=== PATIENT | female | born 1965 | race Caucasian/White ===

== ENCOUNTER 2016-11-15 05:10 | Emergency (ER) | payer OTHER ==
[2016-11-15 05:55] LABS: BASOPHILS % 0.5 (0.0-1.5); EOSINOPHILS % 0.6 % (0.0-6.8); LYMPHOCYTES # 0.9 # k/uL (0.6-4.0); MEAN CORPUSCULAR HEMOGLOBIN 34.3 pg (28.0-34.0); MONOCYTES # 0.4 # k/uL (0.0-0.9); MONOCYTES % 8.6 % (0.0-11.0); NEUTROPHILS # 3.2 # k/uL (1.4-7.7)
--- NOTE | 2016-11-15 06:11 | Diagnostic Imaging Report ---
[facility] [id number] [facility].[address] [address] ~ ~ ~ ~ Report Submission Date: Nov 15, 2016 6:04:15 AM CARE CONNECTOR Patient ~ Study Name: TAMANNA MCCLELLAN ~ Date: Nov 15, 2016 5:47:37 AM CARE CONNECTOR ~ Modality Type: CR Gender: F ~ Description: CHEST : 61 ~ Institution: [facility] Physician: MARCO A WILLIS ~ ~ ~ ~ Chest 2 views History: Cough Findings: A septal occlusion device and moderate hyperinflation are observed without pneumonia or pleural effusion. Heart size is normal. A calcified right lung granuloma is present. Cervical fusion hardware noted. Impression: Septal occlusion device and hyperinflation. ~ Electronically signed on Nov 15, 2016 6:04:15 AM CARE CONNECTOR by: Tomas ADAMS
[2016-11-15 06:26] LABS: eGFR (African) > 60; eGFR (Non-African) > 60
--- NOTE | 2016-11-15 06:56 | ED Physician Documentation ---
Upper Respiratory Symptoms - HPI Stated Complaint: fever, body aches, congestion Chief Complaint: Cough/ Upper Respiratory Onset: days ago Associated Symptoms: fever, chills, runny nose, sinus pain, sinus drainage, sore throat, productive cough. denies: chest pain, bloody cough, shortness of breath Further Comments: yes (51 year old female patient presents with complaints of cough, dyspnea, congestion and headache for "a couple of weeks." Reports temp 104 last night.) - ROS CONST/EYES: denies: weakness, eye redness, eye itching, other CVS/RESP: none LYMPH: denies: leg swelling, rash, swollen glands, ankle swelling, other GI/: none NEURO/PSYCH: denies: fainting, dizziness, confusion, anxiety, depression, other MS/SKIN: denies: joint pain, muscle aches, rash, other - PAST HX Lung Disease: other (VSD) Surgeries/Procedures: other (Septal occlusion device placement. ) Immunizations: UTD Allergies/Adverse Reactions: Allergies Allergy/AdvReac Type Severity Reaction Status Date / Time levofloxacin [From Levaquin] AdvReac Unknown Hives Verified 11/15/16 05:25 tramadol HCl [From Ultram] AdvReac Unknown Hives Verified 11/15/16 05:25 Home Medications: Ambulatory Orders Medication Instructions Recorded Cefdinir [Omnicef] 300 mg PO BID #10 capsule 11/15/16 Cyanocobalamin [Vitamin B-12] 5,000 mcg PO QDAY 11/15/16 Methylprednisolone [Medrol] 4 mg PO DAILY #1 tab.ds.pk 11/15/16 - SOCIAL HX Smoking History: cigarettes - FAMILY HX Family History: denies: none - VITAL SIGNS Vital Signs: Vital Signs Temp Pulse Resp BP Pulse Ox 100.4 F H 103 H 20 114/84 95 11/15/16 07:27 11/15/16 07:27 11/15/16 07:27 11/15/16 07:27 11/15/16 07:27 - REVIEWED ASSESSMENTS Nursing Assessment Reviewed: Yes Vitals Reviewed: Yes Progress - EKG/XRAY/CT XRAY: chest (negative) ED Results Lab/Radiology - Lab Results Lab Results: Lab Results 11/15/16 11/15/16 11/15/16 05:45 05:45 05:35 WBC 4.60 K/ul K/ul (4.00-12.00) RBC 4.78 M/ul M/ul (3.90-5.20) Hgb 16.4 g/dL H g/dL (12.0-16.0) Hct 47.1 % H % (34.5-46.5) MCV 98.5 fl fl (80.0-100.0) MCH 34.3 pg H pg (28.0-34.0) MCHC 34.8 g/dL g/dL (30.0-36.0) RDW 13.3 % % (11.3-14.3) Plt Count 177 K/mm3 K/mm3 (130-400) Neut % (Auto) 69.0 % % (39.0-79.0) Lymph % (Auto) 19.0 % % (16.0-50.0) Ector % (Auto) 8.6 % % (0.0-11.0) Eos % (Auto) 0.6 % % (0.0-6.8) Baso % (Auto) 0.5 (0.0-1.5) Neut # 3.2 # k/uL # k/uL (1.4-7.7) Lymph # 0.9 # k/uL # k/uL (0.6-4.0) Ector # 0.4 # k/uL # k/uL (0.0-0.9) Eos # 0.0 # k/uL # k/uL (0.0-0.6) Baso # 0.0 # k/uL # k/uL (0.0-0.5) Reactive Lymphs % 2.3 % % (0.0-5.0) Reactive Lymphs # 0.1 # k/uL # k/uL (0.0-0.8) Sodium 131 mmol/L L mmol/L (136-145) Potassium 4.2 mmol/L mmol/L (3.5-5.0) Chloride 102 mmol/L mmol/L (98-110) Carbon Dioxide 31 mmol/L mmol/L (20-32) BUN 6 mg/dL L mg/dL (10-26) Creatinine 0.7 mg/dL mg/dL (0.4-1.5) Estimated Creat Clear 108 Est GFR ( Amer) > 60 (60 - ) Est GFR (Non-Af Amer) > 60 (60 - ) Glucose 109 mg/dL H mg/dL (70-99) Calcium 9.5 mg/dL mg/dL (8.5-10.5) Total Bilirubin 0.5 mg/dL mg/dL (0.2-1.2) AST 20 U/L U/L (0-41) ALT 18 U/L U/L (0-45) Alkaline Phosphatase 104 U/L U/L (46-116) Total Protein 7.8 g/dL g/dL (6.0-8.5) Albumin 4.7 g/dL g/dL (3.0-5.5) Influenza Type A Ag Negative (NEGATIVE) Influenza Type B Ag Negative (NEGATIVE) - Radiology Radiology Impressions: Chest 2 views History: Cough Findings: A septal occlusion device and moderate hyperinflation are observed without pneumonia or pleural effusion. Heart size is normal. A calcified right lung granuloma is present. Cervical fusion hardware noted. Impression: Septal occlusion device and hyperinflation. Electronically signed on Nov 15, 2016 6:04:15 AM OPERATIONS FORESTER by: Tomas Rodriguez - Orders Orders: ED Orders Category Date Time Status CHEST 2 VIEW [CHEST P.A.&LAT 2 VIEWS] [RAD] Stat Exams 11/15/16 Completed CBC/PLATELET/DIFF Routine Lab 11/15/16 05:45 Completed CMP Routine Lab 11/15/16 05:45 Completed INFLUENZA A&B Stat Lab 11/15/16 05:35 Completed Upper Respiratory Symptoms - EXAM General Appearance: mild distress EENT: eyes nml inspection, lids & conjunct. nml, PERRL, ear nml, pain over sinuses, frontal, maxillary, ethmoid, nose nml, pharynx nml, airway nml Respiratory: no resp. 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 Neuro/Psych: oriented x3, neuro intact, mood/affect nml, CN's nml as tested Discharge Clincal Impression: Acute frontal sinusitis Qualifiers: Recurrence: non-recurrent Qualified Code(s): J01.10 - Acute frontal sinusitis, unspecified Acute maxillary sinusitis Qualifiers: Recurrence: non-recurrent Qualified Code(s): J01.00 - Acute maxillary sinusitis , unspecified Prescriptions: Cefdinir [Omnicef] 300 mg PO BID #10 capsule Methylprednisolone [Medrol] 4 mg PO DAILY #1 tab.ds.pk Additional Instructions: supply manager an over the counter decongestant such as pseudoped, dayquil and Nyquil at your pharmacy. Treat your symptoms with over the counter medication. You may want to try Vicks rub on your chest and/or feet Cough drops as needed for cough and sore throat. Increase your fluid intake juices, hot tea, non-caffeinated beverages Use a humidifier in the room where you sleep. You can also sit in a steam filled bathroom 1-2 times a day. Tylenol or Ibuprofen as needed for fever, pain and body aches. Start daily allergy medication such as Claritin, Shani or Zyrtec. Start a daily nasal spray such as Flonase or Nasonex You may benefit from the use of a netti pot follow package instructions. See your primary care doctor after you have completed your antibiotic if you symptoms have not resolved. Many times it takes multiple rounds of antibiotics to resolve a sinus infection. Home Medications: Ambulatory Orders Cefdinir [Omnicef] 300 mg PO BID #10 capsule 11/15/16 Cyanocobalamin [Vitamin B-12] 5,000 mcg PO QDAY 11/15/16 Methylprednisolone [Medrol] 4 mg PO DAILY #1 tab.ds.pk 11/15/16 Condition: Stable Disposition: 01 HOME, SELF-CARE Decision to Admit: NO Decision Time: 06:57
[2016-11-15 07:32] VITALS: BP 114/84
== END 2016-11-15 07:27 | disposition home or self-care (01) ==
LOC: ED 05:10
DX: J01.00 Acute maxillary sinusitis, unspecified (principal); J01.10 Acute frontal sinusitis, unspecified
CPT/HCPCS: 71020; 80053; 85025; 87400; 99282; 99283